=== PATIENT | female | born 1975 | race Caucasian/White ===

== ENCOUNTER 2022-06-30 14:57 | Outpatient (CLI) | payer OTHER, SELFPAY ==
--- NOTE | 2022-06-30 15:22 | MM_ITS ---
WS: [id number] BILATERAL 3D TOMOSYNTHESIS DIGITAL SCREENING MAMMOGRAM WITH CAD CLINICAL INFORMATION: SCREENING HISTORY: Screening mammogram. No current complaints. COMPARISON: 2017 TECHNIQUE: Bilateral CC and MLO. FINDINGS: The breast are composed of extremely dense tissue, which can limit the detection of small underlying mass lesions. No suspicious focal mass, asymmetry, calcifications, or architectural distortion. No ev idence of malignancy. Bilateral scattered punctate calcifications. MM/[id number] IMPRESSION: BI-RADS: 2-Benign FOLLOW UP: 1 Year Follow-up Recommend return to annual screening mammography.
== END 2022-06-30 14:58 | disposition home or self-care (01) ==
PROVIDERS: PCP Family Medicine; Visit Provider Family Medicine
DX: Z12.31 Encounter for screening mammogram for malignant neoplasm of breast (principal)
CPT/HCPCS: 77063; 77067

== ENCOUNTER 2023-01-06 08:06 | Outpatient (CLI) | payer OTHER, SELFPAY ==
--- NOTE | 2023-01-06 08:27 | CT_ITS ---
WS: [id number] LDCT LUNG CANCER SCREENING HISTORY: HX OF TOBACCO USE TECHNIQUE: Axial imaging performed from the apices to 1 cm below the costophrenic angles. Coronal and sagittal reformats are submitted with axial MIP series. All CT scans at use at least one of these dose optimization techniques: automated exposure control; mA and/or kV adjustment per patient size (includes targeted exams where dose is matched to clinical indication); or iterativ e reconstruction. DLP: 65.81 mGy.cm DIvol: Mean CTDIvol: 1.30 (mGy) COMPARISON: 01/10/2014 Diagnostic quality: Satisfactory Lungs: Mild centrilobular emphysema. Benign granuloma LEFT upper lobe. No mass or nodules. No endobro nchial lesions. Heart: Normal size heart with no pericardial effusion.. Other findings: Numerous but small mediastinal lymph nodes are identified. These lymph nodes are less than a centimeter. There are small axillary lymph nodes. Thyroid is enlarged and 16 substernal great est on the LEFT. Normal size aorta. Liver is incompletely visualized but does appear enlarged with ch anges of hepatic steatosis. No adrenal mass. Mild curvature thoracic spine. Partial resection of the posterior RIGHT seventh rib. No new lytic lesions within the ribs. IMPRESSION: CT/CT lung screening [id number] LUNG-RADS: 1S-Negative with Significant Findings FOLLOW UP: 12 Month: Continue annual screening with LDCT OTHER FINDINGS (S MODIFIER): Enlarged thyroid. Thyroid ultrasound has recently been performed. Refer to the report from 12/29/2022.
== END 2023-01-06 08:07 | disposition home or self-care (01) ==
PROVIDERS: PCP Family Medicine; Visit Provider Family Medicine
DX: Z12.2 Encounter for screening for malignant neoplasm of respiratory organs (principal); Z87.891 Personal history of nicotine dependence
CPT/HCPCS: 71271

== ENCOUNTER 2023-09-01 15:23 | Outpatient (CLI) | payer OTHER, SELFPAY ==
--- NOTE | 2023-09-01 15:28 | MM_ITS ---
WS: [id number] BILATERAL SCREENING DIGITAL TOMOSYNTHESIS MAMMOGRAM WITH CAD HISTORY: SCREEN COMPARISON: 06/30/2022, 09/21/2016 Bilateral CC and MLO views with tomosynthesis and synthetic mammography submitted. Computer aided det ection analyzed. Breast composition: The breasts are extremely dense, which lowers the sensitivity of mammography. No suspicious masses, microcalcifications or architectural distortion. Scattered benign calcifications. Dense asymmetries are stable. MM/[id number] IMPRESSION: BI-RADS: 2-Benign FOLLOW UP: 1 Year Follow-up
== END 2023-09-01 15:24 | disposition home or self-care (01) ==
LOC: RAD 15:23
PROVIDERS: PCP Family Medicine; Visit Provider Family Medicine
DX: Z12.31 Encounter for screening mammogram for malignant neoplasm of breast (principal); R92.30 Dense breasts, unspecified; R92.1 Mammographic calcification found on diagnostic imaging of breast; N64.89 Other specified disorders of breast
CPT/HCPCS: 77063; 77067

== ENCOUNTER 2024-04-09 08:00 | Outpatient (CLI) | payer OTHER, SELFPAY ==
--- NOTE | 2024-04-09 08:04 | CT_ITS ---
WS: [id number] LDCT LUNG CANCER SCREENING TECHNIQUE: Noncontrast CT of the chest with coronal and sagittal reformatted images. CLINICAL INFORMATION: HX OF TOBACCO USE COMPARISON: 2022 DLP: 54.70 mGy.cm DIvol: Mean CTDIvol: 1.20 (mGy) All CT scans at [facility] use at least one of these dose optimization techniques: automat ed exposure control; mA and/or kV adjustment per patient size (includes targeted exams where dose is matched to clinical indication); or iterative reconstruction. FINDINGS: Chronic emphysematous changes. Incidental calcified granuloma LEFT upper lobe. Calcified gr anuloma RIGHT lower lobe. Tiny noncalcified nodule upper lobe anteriorly. Tiny nodule LEFT hilum. Stable prominent mediastinal lymph nodes. Stable axillary lymph nodes.These are similar to previous. Enlarged thyroid similar to previous with substernal extension. Fatty liver. Adrenal glands are normal. Normal GE junction. Mild thoracic curve. Prior resection of t he posterior RIGHT seventh rib. CT/CT lung screening [id number] IMPRESSION: LUNG-RADS: 2-Benign Appearance or Behavior FOLLOW UP: 12 Month: Continue annual screening with LDCT
== END 2024-04-09 08:01 | disposition home or self-care (01) ==
PROVIDERS: PCP Family Medicine; Visit Provider Family Medicine
DX: Z12.2 Encounter for screening for malignant neoplasm of respiratory organs (principal); Z87.891 Personal history of nicotine dependence; J43.9 Emphysema, unspecified; J44.89 Other specified chronic obstructive pulmonary disease; J98.4 Other disorders of lung; E04.9 Nontoxic goiter, unspecified; K76.0 Fatty (change of) liver, not elsewhere classified; R59.0 Localized enlarged lymph nodes; M43.8X4 Other specified deforming dorsopathies, thoracic region; R93.7 Abnormal findings on diagnostic imaging of other parts of musculoskeletal system
CPT/HCPCS: 71271

== ENCOUNTER 2024-07-02 08:35 | Emergency (ER) | payer OTHER, SELFPAY ==
[2024-07-02 08:52] VITALS: BP 156/105; PULSE 77; RESP 17; TEMP 36.7; O2SAT 97; BMI 30.7
--- NOTE | 2024-07-02 09:06 | ED_ITS ---
HPI - Female Genitourinary 2 General: Chief complaint: Vaginal Bleeding Stated complaint: vag bleeding Time Seen by Provider: 07/02/24 08:37 Source: patient Mode of arrival: ambulatory Limitations: no limitations History of Present Illness: Patient is a 49-year-old female who presents today with complaint of vaginal bleeding. Patient notes that since the February she has had constant vaginal bleeding that varies between light and heavy flow and sometimes with large clots. Patient reports for the past 2 days the bleeding has become very heavy. Patient notes that she typically uses a menstrual cup, however she can no longer do this due to the heavy flow. Not really having much cramping but does occassionally take ibuprofen. Patient denies urinary pain or changes in bowel habits. Patient does note that she recently started norethindrone estradiol a few weeks ago and started with 5 tabs and then tapered down to one tab daily but this has not helped with her bleeding. Reports her mother had a hysterectomy in her 20s due to fibroids. Patient states she has been seeing her PCP Dr. Silveira. She had an ultrasound performed last week (06/21) which was unremarkable-results posted below. She states she is up-to-date on her pap smear/well woman exams. She currently has an appointment scheduled with women's health for August 01. FINDINGS: Uterus: Uterus is normal. Endometrial stripe is 26.3 mm. Uterus measures 9.5 cm x 6.6 cm x 5.9 cm. Cervix measures 4.7 cm Right ovary/adnexa: Ovary is normal. No mass. Normal blood flow. 2.2 cm x 2.1 x 1.9 Left ovary/adnexa: Ovary is normal. No mass. Normal blood flow. 2.3 x 2.2 x 1.5 cm Intraperitoneal space: No intraperitoneal fluid. Urinary bladder: Normal. US/US pelvic complete* [id number] IMPRESSION: 1. Negative uterus , cervix, and endomet rium 2. Normal bilateral ovaries. MD elicited complaint: vaginal bleeding Onset (ago): month(s) Location of symptoms: vaginal Severity: moderate Quality of pain: cramping and aching Consistency: constant and progressively worsening Vaginal bleeding: moderate, heavy, bright red and clots Exacerbating factors: none Relieving factors: none Associated symptoms: Reports nausea; Deny abdominal pain Treatment prior to arrival: none Patient : No Related Data Home Medications ?Medication ?Instructions ?Recorded ?Confirmed ferrous gluconate 324 mg (38 mg 324 mg PO DAILY 07/02/24 iron) tablet ferrous gluconate 324 mg (38 mg 324 mg PO DAILY 07/02/24 iron) tablet levothyroxine 100 mcg tablet See Rx Instructions .Rout e .COMPLEX 07/02/24 07/02/24 levothyroxine 100 mcg tablet See Rx Instructions .Rout e .COMPLEX 07/02/24 07/02/24 levothyroxine 125 mcg tablet See Rx Instructions .Rout e .COMPLEX 07/02/24 07/02/24 norethindrone 1 mg-ethinyl 1 tab PO DAILY 07/02/2410/19 estradiol 35 mcg tablet (Alyacen) norethindrone 1 mg-ethinyl See Rx Instructions .Route .COMPLEX 07/02/24 07/02/24 estradiol 35 mcg tablet (Alyacen) Allergies Allergy/AdvReac Type Severity Reaction Status Date / Time codeine Allergy ADR-Gastrointestinal Verified 07/02/24 08:55 Upset Review of Systems 2 Const: Reports: fatigue; Denies: fever(s), chills or body aches Eyes: Denies: change in vision ENMT: Denies: throat pain Card: Denies: chest pain Resp: Denies: dyspnea GI: Reports: nausea; Denies: abdominal pain or vomiting : Reports: vaginal bleeding and change in menstrual flow; Denies: flank pain, difficulty voiding, dysuria, urinary frequency or urinary urgency Musc: Denies: back pain Neuro: Denies: numbness in extremities, weakness in extremities, sensory changes or dizziness Physical Exam 2 Const: COMMON NORMALS: no acute distress, patient oriented x3, no limitations, healthy appearing, alert and well nourished GENERAL APPEARANCE: cooperative and comfortable Resp: COMMON NORMALS: normal respiratory effort, No retractions, No use of accessory muscles and clear to auscultation bilaterally AUSCULTATION: clear to auscultation bilaterally Cardio: COMMON NORMALS: regular rate and regular rhythm RATE: regular rate RHYTHM: regular rhythm GI: COMMON NORMALS: Normal to inspection, nondistended, normoactive bowel sounds present, Soft to palpation, non-tender, No hepatosplenomegaly present and no masses INSPECTION: Yes normal to inspection PALPATION: Yes Soft to palpation and Yes No hepatosplenomegaly present : COMMON NORMALS: Yes no CVA tenderness BLADDER/KIDNEY EXAM: Yes no CVA tenderness Back/Pelvis: COMMON NORMALS: no CVA tenderness Extremity: GENERAL: Yes normal exam except as noted Neuro: COMMON NORMALS: patient oriented x3 SENSORIUM/ORIENTATION: Yes alert Course 2 Vital Signs: Vital signs: Vital Signs Temperature 98.1 F 07/02/24 08:52 Pulse Rate 72 07/02/24 09:31 Respiratory Rate 16 07/02/24 09:31 Blood Pressure 163/109 07/02/24 09:31 Pulse Oximetry 97 07/02/24 09:31 Oxygen Delivery Me thod Room Air 07/02/24 09:31 MDM - Female Medical Decision Making Patient clinically appears in no acute distress. Vital signs are stable. Orthostatics are negative. H&H today is 12.3/37.5. Previous labs from [facility] were requested but at time of discharge, these have not been received. She did undergo ultrasound imaging last week which was reviewed. Patient is already taking monophasic OCPs for her bleeding. I did discuss with Dr. Christopher who is recommending 150 mg Depo-Provera and he will follow-up with patient next Tuesday at 2 PM. Medical Records I reviewed the patient's medical records. Lab Data I reviewed the patient's lab results. 07/02/24 09:19 07/02/24 09:19 Laboratory Results WBC 7.62 10^3/uL (3.29-11.43) 07/02/24 09:19 RBC 4.30 10^6/uL (3.85-5.65) 07/02/24 09:19 Hgb 12.30 g/dL (11.27-16.99) 07/02/24 09:19 Hct 37.5 % (36-47) 07/02/24 09:19 MCV 87.2 fl (85-98) 07/02/24 09:19 MCH 28.6 pg (27-33) 07/02/24 09:19 MCHC 32.8 g/dL (30-55) 07/02/24 09:19 RDW 13.0 % (12.1-15.1) 07/02/24 09:19 Plt Count 326 10^3/cmm (157-399) 07/02/24 09:19 MPV 10.3 fL (7.4-10.4) 07/02/24 09:19 Neut % (Auto) 66.2 % 07/02/24 09:19 Lymph % (Auto) 24.8 % 07/02/24 09:19 Eagle % (Auto) 4.1 % 07/02/24 09:19 Eos % (Auto) 3.7 % 07/02/24 09:19 Baso % (Auto) 0.8 % 07/02/24 09:19 Neut # (Auto) 5.05 10^3/uL (1.8-7.7) 07/02/24 09:19 Lymph # (Auto) 1.9 10^3/uL (0.8-4.8) 07/02/24 09:19 Eagle # (Auto) 0.3 10^3/uL (0.2-0.9) 07/02/24 09:19 Eos # (Auto) 0.3 10^3/uL (0.0-0.8) 07/02/24 09:19 Baso # (Auto) 0.1 10^3/uL (0.0-0.1) 07/02/24 09:19 Nucleated RBC % (auto) 0 % 07/02/24 09:19 Nucleated RBCs # 0.0 /100WBC 07/02/24 09:19 Sodium 138 mmol/L (136-145) 07/02/24 09:19 Potassium 3.7 mmol/L (3.5-5.1) 07/02/24 09:19 Chloride 105 mmol/L (98-107) 07/02/24 09:19 Carbon Dioxide 19 mmol/L (22-29) L 07/02/24 09:19 Anion Gap 17.7 (5-19) 07/02/24 09:19 BUN 10 mg/dL (6-20) 07/02/24 09:19 Creatinine 0.7 mg/dL (0.5-0.9) 07/02/24 09:19 GFR Calculation 88.2 mL/min (90-130) L 07/02/24 09:19 Glucose 99 mg/dL (65-115) 07/02/24 09:19 Calculated Osmolality 285 mOsm/kg (285-295) 07/02/24 09:19 Calcium 8.6 mg/dL (8.5-10.5) 07/02/24 09:19 Total Bilirubin 0.2 mg/dL (0.15-1.2) 07/02/24 09:19 AST 13 U/L (0-32) 07/02/24 09:19 ALT 15 U/L (0-33) 07/02/24 09:19 Alkaline Phosphatase 65 U/L (35-105) 07/02/24 09:19 Total Protein 7.3 g/dL (6.6-8.7) 07/02/24 09:19 Albumin 4.0 g/dL (3.5-5.2) 07/02/24 09:19 Globulin 3.3 g/dL (1.3-4.6) 07/02/24 09:19 No radiology studies performed this visit Discharge Plan Discharge Patient Disposition: Home Clinical Impression: Menorrhagia Qualifiers: Menorrhagia type: premenopausal Qualified Code(s): N92.4 - Excessive bleeding in the premenopausal period Condition: Stable Prescriptions: No Action levothyroxine 100 mcg tablet See Rx Instructions .ROUTE .COMPLEX Rx Instructions: Take 100 mcg by mouth 4 times weekly. Tuesday, , Tuesday, and Tuesday. levothyroxine 125 mcg tablet See Rx Instructions .ROUTE .COMPLEX Rx Instructions: Take 125 mcg by mouth 3 days weekly. Tuesday, Tuesday, and Tuesday. Alyacen 1/35 (28) 1-35 mg-mcg tablet 1 tab PO DAILY ferrous gluconate 324 mg (38 mg iron) tablet 324 mg PO DAILY levothyroxine 100 mcg tablet See Rx Instructions .ROUTE .COMPLEX Rx Instructions: TAKE 1 TABLET BY MOUTH DAILY 4 DAYS A WEEK Alyacen 1/35 (28) 1-35 mg-mcg tablet See Rx Instructions .ROUTE .COMPLEX Rx Instructions: TAKE 5 PILLS ON DAY 1, 4 PILLS ON DAY 2, 3 PILLS ON DAY 3, 2 PILLS ON DAY 4, THEN 1 PILL DAILY ferrous gluconate 324 mg (38 mg iron) tablet 324 mg PO DAILY Discharge Orders: Discharge ED (Routine); Ordered 07/02/24 Ordered By: Masha Gao Referrals: Delbert Christopher MD [Physician] - Darin Silveira MD [Primary Care Provider] - Patient Instructions: Menorrhagia (ED) Activity Restrictions/Additional Instructions: As we discussed, the recommendation of Dr. Christopher at the [facility] women's health clinic, you were given a Depo-Provera shot today in attempts to help with your vaginal bleeding. He is graciously willing to see you next TuesdayJuly 09 at 2 PM for further evaluation of your bleeding. Print Language: Italian Coding Level of Care Code ED Stoker Installation Mechanic for Rosa M Min
[2024-07-02 09:26] LABS: Basophils # 0.1 10^3/uL (0.0-0.1); Basophils % 0.8 %; Eosinophils # 0.3 10^3/uL (0.0-0.8); Eosinophils % 3.7 %; Hematocrit 37.5 % (36-47); Lymphocytes # 1.9 10^3/uL (0.8-4.8); Lymphocytes % 24.8 %; Mean Corpuscular HGB Conc 32.8 g/dL (30-55); Mean Corpuscular Hemoglobin 28.6 pg (27-33); Mean Corpuscular Volume 87.2 fl (85-98); Mean Platelet Volume 10.3 fL (7.4-10.4); Monocytes # 0.3 10^3/uL (0.2-0.9); Monocytes % 4.1 %; Neutrophils # 5.05 10^3/uL (1.8-7.7); Neutrophils % 66.2 %; Nucleated Red Blood Cells % 0 %; Platelet Count 326 10^3/cmm (157-399); White Blood Count 7.62 10^3/uL (3.29-11.43)
[2024-07-02 09:28] VITALS: BP 153/103; BP 161/98; BP 163/109; PULSE 72; PULSE 79; PULSE 82
[2024-07-02 09:31] VITALS: BP 163/109; PULSE 72; RESP 16; O2SAT 97
[2024-07-02 09:41] LABS: Alanine Aminotransferase 15 U/L (0-33); Alkaline Phosphatase 65 U/L (35-105); Anion Gap 17.7 (5-19); Aspartate Amino Transferase 13 U/L (0-32); Blood Urea Nitrogen 10 mg/dL (6-20); Calcium 8.6 mg/dL (8.5-10.5); Carbon Dioxide 19 mmol/L (22-29); Chloride 105 mmol/L (98-107); Creatinine Clr Calc Pharmacy 101.7162; Globulin 3.3 g/dL (1.3-4.6); Glomerular Filtration Rate 88.2 mL/min (90-130); Glucose 99 mg/dL (65-115); Osmolality Calculated 285 mOsm/kg (285-295); Potassium 3.7 mmol/L (3.5-5.1); Sodium 138 mmol/L (136-145); Total Bilirubin 0.2 mg/dL (0.15-1.2); Total Protein 7.3 g/dL (6.6-8.7)
[2024-07-02] MEDS: medroxyprogesterone 150 mg/ml SDV 1 mL IM (10:34)
[2024-07-02 10:35] VITALS: BP 158/92; PULSE 78; O2SAT 96
== END 2024-07-02 10:42 | disposition home or self-care (01) ==
PROVIDERS: Family Medicine; Emergency Provider Physician Assistant; PCP Family Medicine
DX: N94.2 Vaginismus (principal)
CPT/HCPCS: 36415; 80053; 85025; 96372; 99284; J1050

== ENCOUNTER → 2024-07-09 15:03 | Outpatient (BNVA) | payer OTHER, SELFPAY | PROVIDERS: PCP Family Medicine; Referring Provider Family Medicine; Visit Provider Obstetrics & Gynecology | DX: Z01.419 Encounter for gynecological examination (general) (routine) without abnormal findings (principal) | CPT/HCPCS: 87624 ==

== ENCOUNTER 2024-08-07 05:36 | Day surgery (SDC) | payer OTHER, SELFPAY ==
[2024-08-07] VITALS (10 sets, daily range): BP systolic 113–161; BP diastolic 69–93; PULSE 61–94; RESP 11–22; TEMP 36.5–36.8; O2SAT 91–98
--- NOTE | 2024-08-07 00:18 | W.PM.OPSFHP ---
Same Day Surgery H&P Indication for Procedure/HPI DATE OF PROCEDURE: August 07, 2024 CHIEF COMPLAINT/INDICATIONFOR SURGICAL PROCEDURE: prolonged and heavy menstrual bleeding PREOP DIAGNOSIS: abnormal uterine bleeding PLANNED PROCEDURE: Operation Date: 08/07/24 07:00 Proposed Procedures p Hysteroscopy w/ Endometrial Sampling(Not Applicable) - Delbert Christopher MD s possible endometrial polypectomy 65877, N92.0(Not Applicable) - Delbert Christopher MD Medications/Allergies* Home Medications ?Medication ?Instructions ?Recorded ?Confirmed ?Type ferrous gluconate 324 mg (38 mg 324 mg PO DAILY 07/02/24 08/06/24 History iron) tablet levothyroxine 100 mcg tablet See Rx Instructions .Route .COMPLEX 07/02/24 08/06/24 History levothyroxine 125 mcg tablet 125 mcg PO .3 days weekly 07/09/24 08/06/24 History (Synthroid) cetirizine 10 mg tablet 10 mg PO DAILY 08/06/24 08/06/24 History coenzyme Q10 30 mg capsule 30 mg PO DAILY 08/06/24 08/06/24 History norethindrone 1.5 mg-ethinyl tab 08/06/24 History estradiol 30 mcg(21)/iron 75 mg(7) tablet (Crys Fe 1.5/30 (28)) omega-3 fatty acids 500 mg PO DAILY 08/06/24 08/06/24 History omeprazole 20 mg tablet,delayed 20 mg PO DAILY 08/06/24 08/06/24 History release Allergies/Adverse Reactions Allergy/AdvReac Type Severity Reaction Status Date / Time codeine Allergy ADR-Gastrointestinal Verified 07/23/24 08:14 Upset Pertinent History/Comorbid Conditions* Family History (Updated 07/09/24 @ 14:23 by Prabha Johnson RN) Heart disease Mother Breast cancer Grandmother Social History Smoking and tobacco/nicotine status: former use of tobacco/nicotine Pertinent Exam Findings alert, oriented x 3, clear to auscultation bilaterally and regular rate & rhythm Pertinent Data Pelvic sono 06-21-24 endometrium 2.6 cm Normal uterus and ovaries Hgb 07-02-24 12.3 Pap 07-09-24 NILM, negative HPV Recommendations Surgery/Procedure today Coding Level of Care Code Acute Code for Chg Fwd
[2024-08-07 05:57] LABS: OR HCG Qualitative Urine Negative (Negative)
--- NOTE | 2024-08-07 06:39 | ANES.PREANE2 ---
Pre-Anesthetic Assessment Height/Weight: Height 1.65 m Temp Pulse Resp BP Pulse Ox O2 Del Method 97.7 F 70 18 161/93 97 Room Air 08/07/24 05:58 08/07/24 05:58 08/07/24 05:58 08/07/24 05:58 08/07/24 05:58 08/07/24 05:59 Preop Diagnosis: abnormal uterine bleeding Operation Date: 08/07/24 07:00 Proposed Procedures p Hysteroscopy w/ Endometrial Sampling(Not Applicable) - Delbert Christopher MD s possible endometrial polypectomy 98316, N92.0(Not Applicable) - Delbert Christopher MD Familial anesthetic complications: None Was Beta Govind taken within 24 hours: N/A Was Clonidine taken within 24 hours: N/A Last intake: Intake Last Liquid Date 08/06/24 Last Liquid Time 18:30 Last Solid Date 08/06/24 Last Solid Time 18:30 Social No alcohol and No tobacco former smoker Exam alert, oriented x 3, clear to auscultation bilaterally and regular rate & rhythm Airway Mallampati: Class II Dentition: other (multiple missing) Pulmonary Chronic Obstructive Pulmonary Disease GI Gastroesophageal Reflux Disease Metabolic Thyroid Disease [facility] langerhans cell histiocytosis Anesthetic Plan ASA status: 3 Anesthesia: General Risk of > 500 ml blood loss (7ml/kg in children): No Medications/Allergies Home Medications ?Medication ?Instructions ?Recorded ?Confirmed ?Last Taken ?Type ferrous gluconate 324 mg (38 mg 324 mg PO DAILY 07/02/24 08/06/24 08/06/24 History iron) tablet levothyroxine 100 mcg tablet See Rx Instructions .Route .COMPLEX 07/02/24 08/06/24 08/06/24 History levothyroxine 125 mcg tablet 125 mcg PO .3 days weekly 07/09/24 08/06/24 08/07/24 History (Synthroid) cetirizine 10 mg tablet 10 mg PO DAILY 08/06/24 08/06/24 08/07/24 History coenzyme Q10 30 mg capsule 30 mg PO DAILY 08/06/24 08/06/24 08/06/24 History norethindrone 1.5 mg-ethinyl tab 08/06/24 08/06/24 History estradiol 30 mcg(21)/iron 75 mg(7) tablet (Crys Fe 1.5/30 (28)) omega-3 fatty acids 500 mg PO DAILY 08/06/24 08/06/24 08/06/24 History omeprazole 20 mg tablet,delayed 20 mg PO DAILY 08/06/24 08/06/24 08/07/24 History release Allergies Allergy/AdvReac Type Severity Reaction Status Date / Time codeine Allergy ADR-Gastrointestinal Verified 07/23/24 08:14 Upset PFSH Anesthesia Family History Mother Heart disease Grandmother Breast cancer Social History Smoking and tobacco/nicotine status: former use of tobacco/nicotine Female Reproductive History Date of last menstrual period: 07/17/24
--- NOTE | 2024-08-07 06:47 | W.PM.OPSUD ---
Surgery/Procedure H&P Update DATE OF PROCEDURE: August 07, 2024 DATE H&P PERFORMED: 07/23/24 H&P UPDATE INFORMATION: I have reviewed H&P completed within last 30 days, I have examined patient prior to procedure and No changes to prior documentation PREOP DIAGNOSIS: abnormal uterine bleeding PLANNED PROCEDURE: Operation Date: 08/07/24 07:00 Proposed Procedures p Hysteroscopy w/ Endometrial Sampling(Not Applicable) - Delbert Christopher MD s possible endometrial polypectomy 68509, N92.0(Not Applicable) - Delbert Christopher MD
--- NOTE | 2024-08-07 09:05 | ANE.PACU2 ---
Inpatient post-anesthesia follow up: Airway intact: Yes Vital signs: Temperature 98.3 F Pulse Rate 69 Respiratory Rate 17 Blood Pressure 116/76 Pulse Oximetry 97 Oxygen Delivery Me thod Room Air Oxygen Flow Rate 8 Fraction of Inspir ed Oxygen Hydration adequate: Yes Nausea and vomiting: No Pain level: 1 Mental status: Baseline
--- NOTE | 2024-08-07 09:15 | P.OP_ITS ---
Operative Report Date of procedure: August 07, 2024 Pre-op diagnosis: abnormal uterine bleeding Post-op diagnosis: same Post-op findings: multiple endometrial polyps with varying sizes large amount of endometrial tissue Normal appearing cervix Procedure done: Hysteroscopy Endometrial sampling and polypectomy with Myosure Curettage of uterus Specimens removed/disposition: endometrial tissue, sent to pathology Surgeon: Delbert Christopher MD Anesthesia: MAC Estimated blood loss (mL): 5 Complications: none Findings: multiple endometrial polyps with varying sizes large amount of endometrial tissue Normal appearing cervix Condition: stable Disposition: PACU Brief History: 49 y.o. with abnormal uterine bleeding Procedure: Informed consent signed. Patient was taken to the operating room. Anesthesia was induced. Patient was placed in dorsolithotomy position, prepped and draped for hysteroscopy. A bivalve speculum was placed in the vagina. The cervix and vagina were normal. The anterior lip of the cervix was grasped with a sharp-toothed tenaculum. The cervix was serially dilated with Hegar dilators. The uterus was sounded to 10 cm. A hysteroscope was placed into the endometrial cavity. There were many endometrial polyps with varying sizes. A large amount of endometrial tissue was seen. The endocervical canal was normal. A Myosure device was then inserted and the endometrial polyps and much of the endometrial tissue were removed and sent to pathology. The endometrial cavity was seen to be intact. The hysteroscope and Myosure were then removed. Endometrial curettage was done with a medium-sized curette. Endometrial tissue was sent to pathology. The sharp- toothed tenaculum was removed. There was no bleeding from the endometrial cavity or cervix. The patient was then placed supine and awakened and taken to the PACU. Postop condition: stable EBL: 5 cc Sponge and instruments counts were normal x 2 Complications: none
[2024-08-07] MEDS: sodium chloride 0.9% 1,000 ML 30 ML IV (09:32)
== END 2024-08-07 09:07 | disposition home or self-care (01) ==
PROVIDERS: PCP Family Medicine; Visit Provider Obstetrics & Gynecology
PROC: 0UDB8ZZ Extraction of Endometrium, Via Natural or Artificial Opening Endoscopic (ICD-10-PCS; CPT 58558; 2024-08-07 07:00)
DX: N84.0 Polyp of corpus uteri (principal); N92.0 Excessive and frequent menstruation with regular cycle; K21.9 Gastro-esophageal reflux disease without esophagitis; J44.9 Chronic obstructive pulmonary disease, unspecified; Z79.899 Other long term (current) drug therapy; Z79.890 Hormone replacement therapy; Z88.5 Allergy status to narcotic agent; Z87.891 Personal history of nicotine dependence
CPT/HCPCS: 58558; 81025; 88305; A4216; J1100; J2250; J2405; J2704; J2710; J3010; J3490; J7030; J9999